=== PATIENT | male | born 1990 | race Caucasian/White ===

== ENCOUNTER 2016-12-05 09:25 | Emergency (ER) | payer SELFPAY ==
[~2016-12-05] VITALS: Ht 175.3 cm; Wt 113.6 kg
[2016-12-05 09:30] VITALS: BP 125/78; PULSE 61; RESP 16; O2SAT 99
--- NOTE | 2016-12-05 09:50 | ED.REPORT ---
HPI-Extremity Problem Lower Date of Service Dec 05, 2016 ED Provider: The patient is an otherwise healthy 26 year old male who presents to the emergency department complaining of right foot pain that began 2 days ago. The patient states he felt a "pop" then immediately felt pain. He has been able to walk but this exacerbates his pain. He has been taking Ibuprofen with some relief. He denies any other injuries or traumas. Nursing Notes Stated Complaint: RIGHT FOOT INJURY Chief Complaint: Extremity Trauma Nursing Notes Reviewed: Yes Allergies: Coded Allergies: No Known Allergies (Unverified , 12/05/16) Scheduled PRN Naproxen (Naproxen) 500 Mg Tab 500 MG PO BID PRN PRN For Pain General Time Seen by MD: 09:49 Chief Complaint Foot injury right Hx Obtained From: Patient, Other family... Arrived By: Walk-in Onset Occurred: 2 days ago Symptom Duration: Since onset Location: : Foot right Quality: Painful Severity: Current: Moderate Severity: Maximum: Severe Pertinent Negative: Pt denies other symptoms Recent Healthcare: No recent doctor visit, No recent hospitalization Similar Sx Previous: No Past Medical History Past Medical History None Past Surgical History None Family History Noncontributory Social History Other Social History: Good social support, Local resident Ambulatory Status Independent Review of Systems Musculoskeletal: Reports: Extremity pain, Extremity swelling, Denies: Back pain, Joint pain, Neck pain Neurologic: Denies: Headache Complete sys rev & neg: except as marked. Physical Exam Initial Vital Signs Vital Signs (First) Date Time Temp Pulse Resp B/P Pulse Ox O2 Delivery O2 Flow Rate FiO2 12/05/16 09:30 36.4 61 16 125/78 99 Initial VS: Reviewed Head / Eyes: Atraumatic, Normocephalic, PERRL ENT: Mucous membranes moist, Conjunctiva normal, No scleral icterus Neck: Supple, Non-tender, Full range of motion Respiratory: No respiratory distress Lymphatic: No lymphadenopathy Upper Extremities: Vascular intact, Neuro intact, No swelling, No tenderness Skin: Warm, Dry, No cyanosis Neurologic: Alert, Oriented, Nonfocal Psychiatric: Mood/affect normal, Behavior normal, Normal thought content Lower Extremity / Pelvis / MS: Neurologic intact, Vascular intact Ankle / Foot: Neurologic intact, Vascular intact Left foot/ankle: medial midfoot pain along the plantar aspect. Ankle normal. No redness, swelling or ecchymosis. Neurovascular intact. General/Constitutional: Awake, Alert, Cooperative Interpretation & Diagnostics X-Ray Interpretation Xray Interpretation: No obvious fractures. X-Ray Ordered: Foot right Interpretation / Wet Read by: Wet read ED physician, Interpret - Radiologist Re-Eval/Medical Decision Med Decision/Clinical Course Likely a sprain of the midfoot, Vikas wrap, cast shoe, crutches provided. Naproxen prescribed. Return in follow-up precautions given. Source of Hx: Family Re-Evaluation/Progress : Time of Eval: 10:44 Re-Evaluation/Progress Note: Rechecked the patient. Discussed x-ray results, diagnosis, and plan for discharge. All questions were addressed. Counseled Regarding: Diagnosis, Need for follow-up, When/why to return to ED Discharge & Departure Impression: Primary Impression: Right foot injury Encounter type: initial encounter Qualified Code: S99.921A - Unspecified injury of right foot, initial encounter Disposition: Home Discharge Condition All VS Reviewed: Yes Condition: Stable Additional Instructions: Thank you for entrusting us with your care today. Your x-ray today is reassuring. There is no evidence of any fractures. Use an vikas wrap, cast shoe and crutches. Weight bear as tolerated. Take Naproxen twice daily as needed for pain. You can also try applying ice to the painful areas if this helps. Followup with your regular doctor next week if your pain continues. Seek care sooner for any new or concerning symptoms. Scribe Attestation Portions of this note were transcribed by Farhana Cardenas. I, Dr. Stapleton personally performed the history, physical exam and medical decision-making; I reviewed and confirmed the accuracy of the information in the transcribed note. Signed by: Dominga Fofana, 12/05/2016 at 1100. Dayo Stapleton DO Dec 05, 2016 09:50 Farhana Cardenas Dec 05, 2016 10:03
[2016-12-05] MEDS ORDERED: NPR500T PO (10:49)
--- NOTE | 2016-12-05 10:50 | DRSVH ---
PROCEDURE: X-RAY RIGHT FOOT COMPLETE, MINIMUM THREE VIEWS ([id number]) INDICATIONS: pain in plantar arch after jumping injury TECHNIQUE: 3 views of the foot were acquired. COMPARISON: None. FINDINGS: Bones: No fractures or dislocations. No suspicious bony lesions. Soft tissues: No tibiotalar joint effusion. Achilles tendon appears normal. IMPRESSION: No visualized acute fracture or dislocation. However, if clinical concern and/or pain pe rsist, short interval imaging followup in 7-10 days is recommended, as occult injury cannot be defini tively excluded. Dictated by: Zulma Stone M.D. on 12/05/2016 at 10:48 Approved by: Zulma Stone M.D. on 12/05/2016 at 10:49
== END 2016-12-05 11:00 | disposition home or self-care (01) ==
LOC: SED 09:25
DX: S99.921A Unspecified injury of right foot, initial encounter (principal); X50.1XXA Overexertion from prolonged static or awkward postures, initial encounter; Y93.39 Activity, other involving climbing, rappelling and jumping off; Y92.89 Other specified places as the place of occurrence of the external cause; Y99.8 Other external cause status

== ENCOUNTER 2017-01-12 06:39 | Emergency (ER) | payer MEDICAID, OTHER ==
[~2017-01-12] VITALS: Ht 175.3 cm; Wt 109.0 kg
[~2017-01-12 06:39] MED LIST: NPR500T PO
[2017-01-12 06:42] VITALS: BP 152/97; PULSE 76; RESP 16; O2SAT 97
--- NOTE | 2017-01-12 06:52 | ED.REPORT ---
HPI-Dental/Mouth Prob Date of Service January 12, 2017 ED Provider: Dayo Stapleton DO A healthy 26 year old male presents to the ER accompanied by his spouse complaining of four days of left side dental pain secondary to a broken tooth. He also reports hot flashes, chills, and diaphoresis last night. Spouse reports that the patient's left cheek has been hot to the touch and swollen since onset. Nursing Notes Stated Complaint: DENTAL PAIN Chief Complaint: Dental Nursing Notes Reviewed: Yes Allergies: Coded Allergies: No Known Allergies (Unverified , 01/12/17) Scheduled Penicillin V Potassium (Penicillin V Potassium) 500 Mg Tablet 500 MG PO QID Scheduled PRN Naproxen (Naproxen) 500 Mg Tab 500 MG PO BID PRN PRN For Pain Naproxen (Naproxen) 500 Mg Tab 500 MG PO BID PRN PRN For Pain General Time Seen by MD: 06:52 Chief Complaint Tooth pain Hx Obtained From: Patient, Spouse Arrived By: Walk-in Onset Occurred: 4 days ago Symptom Duration: Since onset Associated with: Reports: Chills Recent Healthcare: Recent doctor visit Similar Sx Previous: No Past Medical History Past Medical History None Past Surgical History None Family History Noncontributory Smoking History Unknown if Ever Smoker Social History Other Social History: Good social support, Local resident Ambulatory Status Independent Review of Systems Constitutional: Reports: Chills, Denies: Fever Ears / Nose / Throat: Reports: Mouth pain, Toothache GI: Denies: Diarrhea, Nausea, Vomiting Complete sys rev & neg: except as marked. Skin: Reports Diaphoresis Physical Exam Initial Vital Signs Vital Signs (First) Date Time Temp Pulse Resp B/P Pulse Ox O2 Delivery O2 Flow Rate FiO2 01/12/17 06:42 36.7 76 16 152/97 97 Room Air Initial VS: Reviewed General/Constitutional: Well-developed, Well-nourished Head / Eyes: Atraumatic, Normocephalic, PERRL Extremities: Vascular intact, Neuro intact, No swelling, No tenderness Skin: Warm, Dry, No cyanosis Neurologic: Alert, Oriented, Nonfocal Psychiatric: Mood/affect normal, Behavior normal, Normal thought content ENT: Airway patent, Mucous membranes moist, Pharynx NL Tooth #16 fractured, 1/2 missing. Tooth #15 is cratered out. Neck: Supple, No meningismus, Full range of motion, No adenopathy, No swelling , Non-tender, No masses Procedures Dental Nerve Block Dental Nerve Block Note: Fractured Tooth Time: 07:13 Block Performed by: ED physician Consent / Setup / Site Prep: Informed consent provided, Consent from patient Anesthesia: Infraorbital block Local Anesthesia: Lidocaine 1%, Bupivacaine 0.5% (with epinephrine) Post-Procedure / Complications: No complications Re-Eval/Medical Decision Re-Evaluation/Progress #1: Time of Eval: 06:57 Re-Evaluation/Progress Note: Discussed physical examination findings and plan to discharge. Patient is amenable to the plan. Return precautions given. All other questions addressed. Re-Evaluation/Progress #2: Time of Eval: 07:14 Re-Evaluation/Progress Note: Performed dental nerve block. Counseled Regarding: Diagnosis, Need for follow-up, When/why to return to ED Discharge & Departure Primary Impression: Tooth fracture Additional Impression: Toothache Disposition: Home Discharge Condition All VS Reviewed: Yes Condition: Stable Additional Instructions: Take the prescribed Pen VK as directed. It is important Take Naproxen twice daily for pain. Follow-up with your dentist to have the tooth removed as soon as possible. Return to the ER if you develop any new or worsening pain, fever, chills, nausea , vomiting, or any other concerning symptoms. Referrals: NOPCP (PCP) Scribe Attestation Portions of this note were transcribed by Gisela Santiago. I, Dr. Stapleton, personally performed the history, physical exam and medical decision-making; I reviewed and confirmed the accuracy of the information in the transcribed note. Signed by: Dominga Vargas, 01/12/2017 and 07:14 Dayo Stapleton DO January 12, 2017 06:52 GISELA SANTIAGO January 12, 2017 07:01
[2017-01-12] MEDS ORDERED: Bupivacaine 0.5%/EPI 50 mL Inj ONE (07:05)
[2017-01-12] MEDS ORDERED: NPR500T PO (07:15)
[2017-01-12] MEDS ORDERED: PENI500T PO (07:15)
== END 2017-01-12 07:58 | disposition home or self-care (01) ==
LOC: SED 06:39
DX: S02.5XXA Fracture of tooth (traumatic), initial encounter for closed fracture (principal); X58.XXXA Exposure to other specified factors, initial encounter; Y93.9 Activity, unspecified; Y99.8 Other external cause status; Y92.9 Unspecified place or not applicable